=== PATIENT | female | born 1985 | race African-American/Black ===

== ENCOUNTER 2019-10-10 20:36 | Emergency (ER) | payer OTHER ==
[~2019-10-10] VITALS: Ht 160 cm; Wt 74.1 kg
[2019-10-10 20:41] VITALS: Ht 160 cm; Wt 74.1 kg
[2019-10-10] MEDS ORDERED: LASIX40 MG PO (21:09)
[2019-10-10 21:18] LABS: BILIRUBIN NEGATIVE (NEGATIVE); GLUCOSE NEGATIVE (NEGATIVE); KETONE NEGATIVE (NEGATIVE); NITRITE NEGATIVE (NEGATIVE); UROBILINOGEN NORMAL (NORMAL)
[2019-10-10 21:20] LABS: HCG URINE NEGATIVE (NEGATIVE)
[2019-10-10 21:26] LABS: BASOPHILS 0.3 % (0-2); EOSINOPHILS 1.7 % (0-7); HEMATOCRIT 36.5 % (36.0-48.0); HEMOGLOBIN 11.7 g/dL (12-16); LYMPHOCYTES 30.8 % (15-50); MCH 24.2 pg (26.0-34.0); MCHC 32.1 g/dL (31.0-37.0); MCV 75.6 fL (80.0-100.0); MEAN PLATELET VOLUME 9.8 fL (7.4-10.4); MONOCYTES 9.7 % (2-11); NEUTROPHILS 57.5 % (40-80); PLATELET COUNT 276 10x3/uL (130-400); RBC 4.83 10x6/uL (4.00-5.40); RDW 14.4 % (11.5-14.5); WBC 3.6 10x3/uL (4.8-10.8)
[2019-10-10 21:32] LABS: ANION GAP 10.1 mmol/L (8-16); CALCIUM 8.5 mg/dL (8.5-10.1); CARBON DIOXIDE 27.3 mmol/L (21.0-32.0); POTASSIUM - SERUM 3.4 mmol/L (3.5-5.1)
[2019-10-10 21:52] LABS: ALBUMIN 3.4 g/dL (3.4-5.0); BILIRUBIN - TOTAL 0.26 mg/dL (0.2-1.3); C-REACTIVE PROTEIN 1.2 mg/dL (0.0-0.9); MAGNESIUM - SERUM 1.8 mg/dL (1.8-2.4); PROTEIN - SERUM 7.6 g/dL (6.4-8.2); THYROID STIMULATING HORMONE 0.95 uIU/mL (0.36-3.74)
[2019-10-10 22:57] VITALS: BP 136/95
== END 2019-10-10 22:12 | disposition home or self-care (01) ==
LOC: D.ER 20:36
PROVIDERS: Family Medicine
DX: R60.9 Edema, unspecified (principal); M79.643 Pain in unspecified hand